=== PATIENT | female | born 1965 | race Caucasian/White ===

== ENCOUNTER 2020-09-25 13:18 | Emergency (ER) | payer OTHER ==
[~2020-09-25] VITALS: Ht 157.5 cm; Wt 60.0 kg
[2020-09-25 13:22] VITALS: BP 148/82
--- NOTE | 2020-09-25 13:39 | PHYS DOC ---
Past History Past Medical History: Arthritis, Diabetes Additional Past Medical Histor: gout Additional Past Surgical Histo: Josefina n y, humeral head replacement, ORIF R leg Alcohol Use: None General Adult EDM: Chief Complaint: CHEST PAIN HPI: HPI: Patient is a 55-year-old female who presents with chest pain, back pain, nausea. Patient describes the pain as a bandlike, squeezing. Patient's had gastric bypass in April and reports having issues with acid reflux. Chest pain started 2 days ago. Patient's been taking Tylenol at home for the pain with no relief. Review of Systems: Review of Systems: Constitutional: Denies fever or chills Eyes: Denies change in visual acuity HENT: Denies nasal congestion or sore throat Respiratory: Denies cough or reports shortness of breath Cardiovascular: Reports chest pain denies edema GI: Denies abdominal pain, nausea, vomiting, bloody stools or diarrhea : Denies dysuria Musculoskeletal: Denies back pain or joint pain Integument: Denies rash Neurologic: Denies headache, focal weakness or sensory changes Endocrine: Denies polyuria or polydipsia Lymphatic: Denies swollen glands Psychiatric: Denies depression or anxiety Current Medications: Current Meds: Current Medications Medications (Trade) Dose Ordered Sig/Debbie Start Time Stop Time Status Last Admin Dose Admin Aspirin (Aspirin Chewable) 324 mg 1X ONCE 09/25/20 13:45 09/25/20 13:46 Allergies: Allergies: Allergies Coded Allergies Type Severity Reaction Last Updated Verified No Known Drug Allergies 09/25/20 No Physical Exam: PE: Constitutional: Well developed, well nourished, no acute distress, non-toxic appearance. [] HENT: Normocephalic, atraumatic, bilateral external ears normal, oropharynx moist, no oral exudates, nose normal. [] Eyes: PERRLA, EOMI, conjunctiva normal, no discharge. [] Neck: Normal range of motion, no tenderness, supple, no stridor. [] Cardiovascular:Heart rate regular rhythm, no murmur [] Lungs & Thorax: Bilateral breath sounds clear to auscultation [] Abdomen: Bowel sounds normal, soft, no tenderness, no masses, no pulsatile masses. [] Skin: Warm, dry, no erythema, no rash. [] Back: Upper back tenderness, no CVA tenderness. [] Extremities: No tenderness, no cyanosis, no clubbing, ROM intact, no edema. [] Neurologic: Alert and oriented X 3, normal motor function, normal sensory function, no focal deficits noted. [] Psychologic: Affect normal, judgement normal, mood normal. [] Current Patient Data: Vital Signs: Vital Signs Date Time Temp Pulse Resp B/P (MAP) Pulse Ox O2 Delivery O2 Flow Rate FiO2 09/25/20 13:22 97.5 67 17 148/82 (104) 98 EKG: EKG: Sinus rhythm, normal EKG. Heart rate 66 bpm. Intervals normal. [place] normal. Read by Dr. Hopkins at 1333. Repeat EKG: Sinus rhythm, normal EKG. Heart rate 68 bpm. Intervals normal. [place] normal. Read by Dr. Hopkins at 1559. [] Radiology/Procedures: Radiology/Procedures: []AP chest. HISTORY: Chest pain AP view was taken of the chest. Lungs are clear. Heart is normal in size. There is no pleural effusion. IMPRESSION: 1. No acute chest disease. Electronically signed by: Emmanuel Frances MD (09/25/2020 1:50 PM) [facility] CT arteriogram of the chest. HISTORY: Short of breath CT arteriogram of the chest was done using 75 mL Omnipaque 350 contrast. Coronal MIP images were reconstructed. Thyroid is homogeneous. There is no mediastinal adenopathy. The upper aspect of the liver and spleen is unremarkable. There is no effusion. Lungs are free of infiltrates. Study is negative for evidence of a pulmonary embolus. IMPRESSION: 1. No infiltrates noted. 2. Negative for pulmonary embolus. Heart Score: HEART Score for Chest Pain: HEART Score for Chest Pain Response (Comments) Value History Slighlty/Non-Suspicious 0 ECG Normal 0 Age >45 - < 65 1 Risk Factors No Risk Factors 0 Troponin < Normal Limit 0 Total 1 Risk Factors: Risk Factors: DM, Current or recent (<one month) smoker, HTN, HLP, family history of CAD, obesity. Risk Scores: Score 0 - 3: 2.5% MACE over next 6 weeks - Discharge Home Score 4 - 6: 20.3% MACE over next 6 weeks - Admit for Clinical Observation Score 7 - 10: 72.7% MACE over next 6 weeks - Early Invasive Strategies Course & Med Decision Making: Course & Med Decision Making Pertinent Labs and Imaging studies reviewed. (See chart for details) [Patient is a 55-year-old female who presents with chest pain, back pain, nausea. Patient describes the pain as a bandlike, squeezing. Patient's had gastric bypass in April and reports having issues with acid reflux. Chest pain started 2 days ago. Patient's been taking Tylenol at home for the pain with no relief. ]Sinus rhythm, normal EKG. Heart rate 66 bpm. Intervals normal. [place] normal. Chest xray shows No acute chest disease. Troponin is negative. Heart score of 1. D-dimer is elevated(0.88), CTA of chest ordered. Patient complaining of increase in chest pain again. Repeat EKG ordered. 4mg morphine, GI cocktail. Will reassess patient. CTA shows no infiltrates, no PE. Repeat EKG shows no changes. Patient is reporting a decrease in pain 6/10 after GI cocktail and morphine. Discharging patient to home with follow-up instructions for her PCP to get a referral for GI. Sending patient home with zofran and 5/325hydrocodone Kendrick Disclaimer: Kendrick Disclaimer: This electronic medical record was generated, in whole or in part, using a voice recognition dictation system. Departure Departure: Impression: Primary Impression: Chest pain Qualified Codes: R07.9 - Chest pain, unspecified Disposition: 01 DC HOME SELF CARE/HOMELESS Condition: GOOD Referrals: PCP,UNKNOWN (PCP) Patient Instructions: Chest Pain (Nonspecific), [id number] Additional Instructions: He was in the emergency room today for chest pain, nausea. You were given medication to treat the chest pain and nausea. Your pain did improve while in the emergency room. Your lab work, chest x-ray all came back normal. Please contact your PCP tomorrow for a follow-up and a referral for GI. If you have worsening symptoms or concerns please return to the emergency room. EMERGENCY DEPARTMENT GENERAL DISCHARGE INSTRUCTIONS Thank you for coming to [place] [facility] (ED) today and trusting us with you care. We trust that you had a positivie experience in our Emergency Department. If you wish to speak to the department management, you may call the director at [phone]. YOUR FOLLOW UP INSTRUCTIONS ARE FOLLOWS: 1. Do you have a private Doctor? If you do not have a private doctor, please ask for a resource list of physicians or clinics that may be able to assist you with follow up care. 2. The Emergency Physician has interpreted your x-rays. The X-Ray specialist will also review them. If there is a change in the findings, you will be notified in 48 hours when at all possible. 3. A lab test or culture has been done, your results will be reviewed and you will be notified if you need a change in treatment. ADDITIONAL INSTRUCTIONS AND INFORMATION: 1. Your care today has been supervised by a physician who is specially trained in emergency care. Many problems require more than one evaluation for a complete diagnosis and treatment. We recommend that you schedule your follow up appointment as recommended to ensure complete treatment of you illness or injury. If you are unable to obtain follow up care and continue to have a problem, or if your condition worsens, we recommend that you return to the ED. 2. We are not able to safely determine your condition over the phone nor are we able to give sound medical advice over the phone. For these safety reasons, if you call for medical advice we will ask you to come to the ED for further evaluation. 3. If you have any questions regarding these discharge instructions please call the ED at [phone]. SAFETY INFORMATION: In the interest of safety, wellness, and injury prevention; we encourage you to wear your sealbelt, if you smoke; quite smoking, and we encourage family to use a protective helmet for bicycling and other sporting events that present an increased risk for head injury. IF YOUR SYMPTOMS WORSEN OR NEW SYMPTOMS DEVELOP, OR YOU HAVE CONCERNS ABOUT YOUR CONDITION; OR IF YOUR CONDITION WORSENS WHILE YOU ARE WAITING FOR YOUR FOLLOW UP APPOINTMENT; EITHER CONTACT YOUR PRIMARY CARE DOCTOR, THE PHYSICIAN WHOSE NAME AND NUMBER YOU WERE GIVEN, OR RETURN TO THE ED IMMEDIATELY. Scripts Hydrocodone Bit/Acetaminophen (HYDROCODONE-APAP 5-325 ) 1 Each Tablet 1 TAB PO PRN Q6HRS PRN for PAIN for 3 Days, #8 TAB 0 Refills Prov: VALERIO ACUÑA APRN 09/25/20 Ondansetron Hcl (ZOFRAN) 4 Mg Tablet 4 MG PO TID PRN PRN for NAUSEA, #9 TAB Prov: VALERIO ACUÑA APRN 09/25/20 VALERIO ACUÑA APRN Sep 25, 2020 13:39
--- NOTE | 2020-09-25 13:40 | EKG ---
[address] [address] Test Date: 2020-09-25 Test Time: 13:25:48 Pat Name: CLAUDIA PALACIO Department: Room: Gender: F Billet Sawyer: JOHN : 1965 Requested By: VALERIO ACUÑA Order Number: [id number] Reading MD: Amadou Flynn Measurements Intervals [place] Heart Rate: 66 P: 0 LA: 204 QRS: 8 QRSD: 76 T: 22 QT: 414 QTc: 436 Interpretive Statements SINUS RHYTHM NORMAL ECG RI6.02 No previous ECG available for comparison Electronically Signed On 09-26-2020 10:03:10 TEXTILE SLITTING MACHINE OPERATOR by Amadou Flynn
[2020-09-25] MEDS ORDERED: ASPIRIN CHEWABLE 81 MG TABLET. PO ONE (13:45)
--- NOTE | 2020-09-25 13:53 | RAD ---
AP chest. HISTORY: Chest pain AP view was taken of the chest. Lungs are clear. Heart is normal in size. There is no pleural effusio n. IMPRESSION: 1. No acute chest disease. Electronically signed by: Emmanuel Frances MD (09/25/2020 1:50 PM) [facility]
[2020-09-25] MEDS ORDERED: ONDANSETRON PF 4 MG/2 ML VIAL. IVP ONE (14:00)
[2020-09-25] MEDS ORDERED: MORPHINE SULFATE 4 MG/ML DISP.SYRIN. IV ONE ×2 (14:00→16:00)
[2020-09-25 14:04] LABS: BASO # 0.1 x10^3/uL (0.0-0.2); BASO % 1 % (0-3); EOS % 0 % (0-3); HEMATOCRIT 42.2 % (36.0-47.0); HEMOGLOBIN 13.6 g/dL (12.0-15.5); LYMPH # 2.1 x10^3/uL (1.0-4.8); LYMPH % 23 % (24-48); MEAN CORPUSCULAR HEMOGLOBIN 30 pg (25-35); MEAN CORPUSCULAR HGB CONC 32 g/dL (31-37); MEAN CORPUSCULAR VOLUME 92 fL (79-100); MONO # 0.6 x10^3/uL (0.0-1.1); MONO % 7 % (0-9); NEUT # 6.5 x10^3uL (1.8-7.7); NEUT % 70 % (31-73); PLATELET COUNT 345 x10^3/uL (140-400); RED BLOOD COUNT 4.57 x10^6/uL (3.50-5.40); RED CELL DISTRIBUTION WIDTH 13.7 % (11.5-14.5); WHITE BLOOD COUNT 9.3 x10^3/uL (4.0-11.0)
[2020-09-25 14:19] LABS: CREATININE 1.3 mg/dL (0.6-1.0); GFR 42.7; POTASSIUM 4.3 mmol/L (3.5-5.1)
[2020-09-25 14:30] LABS: ALBUMIN 3.2 g/dL (3.4-5.0); ALBUMIN/GLOBULIN RATIO 0.7 (1.0-1.7); MAGNESIUM 2.2 mg/dL (1.8-2.4); TOTAL BILIRUBIN 0.3 mg/dL (0.2-1.0)
[2020-09-25] MEDS ORDERED: IOHEXOL 350 MG/ML 100 ML VIAL. IV ONE (15:00)
--- NOTE | 2020-09-25 15:48 | RAD ---
CT arteriogram of the chest. HISTORY: Short of breath CT arteriogram of the chest was done using 75 mL Omnipaque 350 contrast. Coronal MIP images were mak nstructed. Thyroid is homogeneous. There is no mediastinal adenopathy. The upper aspect of the liver and spleen is unremarkable. There is no effusion. Lungs are free of infiltrates. Study is negative fo r evidence of a pulmonary embolus. IMPRESSION: 1. No infiltrates noted. 2. Negative for pulmonary embolus. PQRS Compliance Statement: One or more of the following individualized dose reduction techniques were utilized for this examinat ion: 1. Automated exposure control 2. Adjustment of the mA and/or kV according to patient size 3. Use of iterative reconstruction technique Electronically signed by: Emmanuel Frances MD (09/25/2020 3:46 PM) [facility]
[2020-09-25] MEDS ORDERED: LIDO:MAALOX 1:1 20 ML SINGLE DOSE. PO ONE (16:00)
[2020-09-25] MEDS ORDERED: ONDA4TAB7 PO (17:05)
[2020-09-25] MEDS ORDERED: HYDR-2155 PO (17:05)
--- NOTE | 2020-09-25 17:40 | EKG ---
[address] [address] Test Date: 2020-09-25 Test Time: 15:54:59 Pat Name: CLAUDIA PALACIO Department: Room: Gender: F Improvement Engineer: JOHN : 1965 Requested By: VALERIO ACUÑA Order Number: [id number] Reading MD: Amadou Flynn Measurements Intervals [place] Rate: 68 P: 27 [place]: 200 QRS: 13 QRSD: 76 T: 22 QT: 418 QTc: 445 Interpretive Statements SINUS RHYTHM NORMAL ECG Electronically Signed On 09-26-2020 10:03:20 DOWEL SETTING MACHINE OPERATOR by Amadou Flynn
== END 2020-09-25 17:25 | disposition home or self-care (01) ==
LOC: ER 13:18
DX: R07.89 Other chest pain (principal); M54.6 Pain in thoracic spine; M19.90 Unspecified osteoarthritis, unspecified site; E11.9 Type 2 diabetes mellitus without complications; Z98.84 Bariatric surgery status
CPT/HCPCS: 36415; 71045; 71275; 80053; 83735; 83880; 84484; 85025; 85379; 93005; 96374; 96375; 96376; 99285; J2270; J2405; Q9967

== ENCOUNTER 2021-04-03 11:00 | Emergency (ER) | payer OTHER ==
[~2021-04-03] VITALS: Ht 157.5 cm; Wt 60.0 kg
[~2021-04-03 11:00] MED LIST: HYDR-2155 PO; ONDA4TAB7 PO
[2021-04-03 11:13] VITALS: BP 148/82
--- NOTE | 2021-04-03 12:18 | EKG ---
[address] [address] Test Date: 2021-04-03 Test Time: 12:06:40 Pat Name: CLAUDIA PALACIO Department: Room: Gender: F Master Data Analyst: JENNA : 1965 Requested By: ISABELA SAUCEDO Order Number: [id number] Reading MD: Measurements Intervals [place] Rate: 65 P: 54 [place]: 210 QRS: 31 QRSD: 74 T: 43 QT: 400 QTc: 417 Interpretive Statements SINUS RHYTHM NORMAL ECG RI6.02 No previous ECG available for comparison
--- NOTE | 2021-04-03 12:21 | PHYS DOC ---
Past History Past Medical History: Arthritis, Diabetes Additional Past Medical Histor: gout Past Surgical History: Cholecystectomy Additional Past Surgical Histo: Josefina n y, humeral head replacement, ORIF R leg Alcohol Use: None Adult General Chief Complaint Chief Complaint: CHEST PAIN [facility] HPI Patient is a 55-year-old female presenting for chest pain. Reports onset was approximately 1 hour ago while at rest. Endorses substernal chest pain that was tight and nonradiating, lasted several minutes before self resolving without any provided intervention. Reports initial severity was 10/10 and caused her to double over, this was transient in nature. She has never experienced anything like this in the past. Nothing known made better or worse during episode. She has never suffered any episode like this in the past. Does not smoke, has family history of cardiovascular disease all found at older ages, no personal history of cardiovascular disease or provocative cardiac testing in outpatient setting besides an unremarkable stress test 13 years ago. No recent changes in home medication, no significant comorbid conditions, no fever, recent travel or sick contacts, ripping or tearing sensation in chest, shortness of breath or cough, abdominal pain Review of Systems Review of Systems Fourteen body systems of review of systems have been reviewed. See HPI for pertinent positives and negative responses, other garay all other systems are negative, non-pertinent or non-contributory Allergies Allergies Allergies Coded Allergies Type Severity Reaction Last Updated Verified No Known Drug Allergies 09/25/20 No Physical Exam Physical Exam Constitutional: Well developed, well nourished, no acute distress, non-toxic appearance. [] HENT: Normocephalic, atraumatic, bilateral external ears normal, oropharynx moist, no oral exudates, nose normal. [] Eyes: PERRLA, EOMI, conjunctiva normal, no discharge. [] Neck: Normal range of motion, no tenderness, supple, no stridor. [] Cardiovascular:Heart rate regular rhythm, no murmur [] Lungs & Thorax: Bilateral breath sounds clear to auscultation [] Abdomen: Bowel sounds normal, soft, no tenderness, no masses, no pulsatile masses. [] Skin: Warm, dry, no erythema, no rash. [] Back: No tenderness, no CVA tenderness. [] Extremities: No tenderness, no cyanosis, no clubbing, ROM intact, no edema. [] Neurologic: Alert and oriented X 3, normal motor function, normal sensory function, no focal deficits noted. [] Psychologic: Affect normal, judgement normal, mood normal. [] Current Patient Data Vital Signs Vital Signs Date Time Temp Pulse Resp B/P (MAP) Pulse Ox O2 Delivery O2 Flow Rate FiO2 04/03/21 11:13 97.8 71 16 148/82 99 Room Air Lab Results Laboratory Tests Test 04/03/21 12:35 White Blood Count 4.3 x10^3/uL Red Blood Count 4.13 x10^6/uL Hemoglobin 12.8 g/dL Hematocrit 38.8 % Mean Corpuscular Volume 94 fL Mean Corpuscular Hemoglobin 31 pg Mean Corpuscular Hemoglobin Concent 33 g/dL Red Cell Distribution Width 14.1 % Platelet Count 156 x10^3/uL Neutrophils (%) (Auto) 48 % Lymphocytes (%) (Auto) 42 % Monocytes (%) (Auto) 7 % Eosinophils (%) (Auto) 3 % Basophils (%) (Auto) 1 % Neutrophils # (Auto) 2.1 x10^3uL Lymphocytes # (Auto) 1.8 x10^3/uL Monocytes # (Auto) 0.3 x10^3/uL Eosinophils # (Auto) 0.1 x10^3/uL Basophils # (Auto) 0.0 x10^3/uL Sodium Level 143 mmol/L Potassium Level 4.1 mmol/L Chloride Level 107 mmol/L Carbon Dioxide Level 29 mmol/L Anion Gap 7 Blood Urea Nitrogen 29 mg/dL Creatinine 1.0 mg/dL Estimated GFR (Cockcroft-Gault) 57.8 BUN/Creatinine Ratio 29 Glucose Level 83 mg/dL Calcium Level 8.9 mg/dL Total Bilirubin 0.3 mg/dL Aspartate Amino Transf (AST/SGOT) 292 U/L Alanine Aminotransferase (ALT/SGPT) 231 U/L Alkaline Phosphatase 120 U/L Troponin I Quantitative < 0.017 ng/mL Total Protein 6.5 g/dL Albumin 3.8 g/dL Albumin/Globulin Ratio 1.4 Lipase 139 U/L EKG EKG EKG ordered and interpreted by myself at 1207 hrs. as sinus rhythm at 65 bpm, prolonged RI at 210 otherwise unremarkable intervals, no axis deviation, no obvious ischemic findings, no STEMI Radiology/Procedures Radiology/Procedures INDICATION: Reason: chest pain / Spl. Instructions: / History: COMPARISON: September 25, 2020 FINDINGS: Single view of chest obtained. No focal airspace consolidation. Cardiomediastinal contour unremarkable. No acute osseous abnormality. IMPRESSION: * No focal airspace consolidation or edema. Electronically signed by: Nii Ye MD (04/03/2021 12:45 PM) DESKTOP- [id number] Heart Score C/O Chest Pain: No HEART Score for Chest Pain: HEART Score for Chest Pain Response (Comments) Value History Slighlty/Non-Suspicious 0 ECG Normal 0 Age >45 - < 65 1 Risk Factors 1 or 2 Risk Factors 1 Troponin < Normal Limit 0 Total 2 Risk Factors: Risk Factors: DM, Current or recent (<one month) smoker, HTN, HLP, family history of CAD, obesity. Risk Scores: Risk Factors: DM, Current or recent (<one month) smoker, HTN, HLP, family history of CAD, obesity. Course & Med Decision Making Course & Med Decision Making Vitals stable. HPI, physical examination and comprehensive ER work-up nonconcerning for any emergent or surgical issues. I disclosed low risk heart score but did disclose this might be an acute presentation of more concerning pathology I discussed patient's symptoms and unknown etiology of reported episode. I did recommend cardiac observation but patient deferred. She cites good access to primary care provider and wishes to have close outpatient follow-up versus ad mission As such, strict return precautions were discussed and understood by both patient and significant other at bedside. All questions and concerns addressed prior to ER departure Kendrick Disclaimer Kendrick Disclaimer This electronic medical record was generated, in whole or in part, using a voice recognition dictation system. Departure Departure: Impression: Primary Impression: Chest pain, unspecified Disposition: HOME / SELF CARE / HOMELESS Condition: STABLE Referrals: THEA DUMONT (PCP) HILDA ARGUELLES MD Patient Instructions: Chest Pain (Nonspecific) Additional Instructions: You were seen for chest pain. Your workup did not show any acute abnormalities today, but does not indicate that you do not have underlying cardiovascular disease. You do need to follow up with your primary doctor and/or usability architect for further evaluation and treatment. You should return to the ED if you develop worsening chest pain, shortness of breath, fever, abnormal sweating, leg swelling, or any other new or concerning symptoms. ISABELA SAUCEDO DO Apr 03, 2021 12:21
--- NOTE | 2021-04-03 12:48 | RAD ---
INDICATION: Reason: chest pain / Spl. Instructions: / History: COMPARISON: September 25, 2020 FINDINGS: Single view of chest obtained. No focal airspace consolidation. Cardiomediastinal contour unremarkable. No acute osseous abnormality. IMPRESSION: * No focal airspace consolidation or edema. Electronically signed by: Nii Ye MD (04/03/2021 12:45 PM) [id number]
[2021-04-03 12:53] LABS: BASO % 1 % (0-3); EOS # 0.1 x10^3/uL (0.0-0.7); EOS % 3 % (0-3); HEMATOCRIT 38.8 % (36.0-47.0); HEMOGLOBIN 12.8 g/dL (12.0-15.5); LYMPH # 1.8 x10^3/uL (1.0-4.8); LYMPH % 42 % (24-48); MEAN CORPUSCULAR HEMOGLOBIN 31 pg (25-35); MEAN CORPUSCULAR HGB CONC 33 g/dL (31-37); MEAN CORPUSCULAR VOLUME 94 fL (79-100); MONO # 0.3 x10^3/uL (0.0-1.1); MONO % 7 % (0-9); NEUT # 2.1 x10^3uL (1.8-7.7); NEUT % 48 % (31-73); PLATELET COUNT 156 x10^3/uL (140-400); RED BLOOD COUNT 4.13 x10^6/uL (3.50-5.40); RED CELL DISTRIBUTION WIDTH 14.1 % (11.5-14.5); WHITE BLOOD COUNT 4.3 x10^3/uL (4.0-11.0)
[2021-04-03 13:02] LABS: CALCIUM 8.9 mg/dL (8.5-10.1); GFR 57.8; POTASSIUM 4.1 mmol/L (3.5-5.1)
[2021-04-03 13:08] LABS: ALBUMIN 3.8 g/dL (3.4-5.0); ALBUMIN/GLOBULIN RATIO 1.4 (1.0-1.7); TOTAL BILIRUBIN 0.3 mg/dL (0.2-1.0); TOTAL PROTEIN 6.5 g/dL (6.4-8.2)
== END 2021-04-03 13:48 | disposition home or self-care (01) ==
LOC: ER 11:00
DX: R07.89 Other chest pain (principal); E11.9 Type 2 diabetes mellitus without complications; Z90.49 Acquired absence of other specified parts of digestive tract
CPT/HCPCS: 36415; 71045; 80053; 83690; 84484; 85025; 93005; 99285-25

== ENCOUNTER 2021-06-27 03:23 | Inpatient (IN) | payer OTHER ==
[~2021-06-27] VITALS: Ht 157.5 cm; Wt 51.0 kg
--- NOTE | 2021-06-27 03:31 | PHYS DOC ---
Past History Past Medical History: Arthritis, Diabetes Additional Past Medical Histor: gout Past Surgical History: Cholecystectomy Additional Past Surgical Histo: Josefina n y, humeral head replacement, ORIF R leg Alcohol Use: None Adult General HPI HPI Patient is a 56-year-old female with a past medical history of urinary tract infections and kidney stones who presents to the emergency department with a chief complaint of urinary frequency, urgency, flank pain 6 out of 10, sharp in nature and nausea that started last night. Denies recent traumas, travels, illnesses, fevers, chest pain, shortness of breath, other abdominal pain or vomiting, hematuria, diarrhea or blood in the stool. Review of Systems Review of Systems Review of systems otherwise unremarkable except noted in HPI Allergies Allergies Allergies Coded Allergies Type Severity Reaction Last Updated Verified No Known Drug Allergies 09/25/20 No Physical Exam Physical Exam Constitutional: Well developed, well nourished, no acute distress, non-toxic appearance. [] HENT: Normocephalic, atraumatic, bilateral external ears normal, oropharynx moist, no oral exudates, nose normal. [] Eyes: conjunctiva normal, no discharge. [] Neck: Normal range of motion, no tenderness, supple, no stridor. [] Cardiovascular:Heart rate regular rhythm, no murmur [] Lungs & Thorax: Bilateral breath sounds clear to auscultation [] Abdomen: soft, no tenderness, no masses, no pulsatile masses. [] Skin: Warm, dry, no erythema, no rash. [] Back: No tenderness, no CVA tenderness. [] Extremities: No tenderness, no cyanosis, no clubbing, ROM intact, no edema. [] Neurologic: Alert and oriented X 3, normal motor function, normal sensory function, no focal deficits noted. [] Psychologic: Affect normal, judgement normal, mood normal. [] EKG EKG [] Radiology/Procedures Radiology/Procedures [] CT ABDOMEN+PELVIS WO Clinical Indication: Reason: flank pain, left side / Spl. Instructions: / History: Comparison: None. Technique: Helical CT imaging of the abdomen and pelvis is performed without IV or oral contrast. Findings: Lung bases are clear. Cardiac size normal. Cholecystectomy. The liver, spleen, pancreas, and adrenal glands are normal. The abdominal aorta is normal caliber. There are several punctate nonobstructing right renal calculi. There is no right hydronephrosis. There is severe left perinephric stranding. There is moderate left hydronephrosis. There is air in the upper collecting system. There are a few nonobstructing left renal calculi, largest measures 5 mm. There is left upper pole cyst that does not require follow-up. There is hyperdensity at the left ureteropelvic junction that may be due to tiny calculi, image 43. There is left hydroureter. There is a probable tiny left ureteral calculus, image 111. There are postsurgical changes of gastric bypass. No small bowel obstruction is identified. There is moderate colon stool volume. No colon wall thickening is identified. No secondary signs of appendicitis. The urinary bladder is nearly completely decompressed, limiting evaluation. Small amount of air is seen in the lumen. Uterus unremarkable. No pelvic free fluid. No acute bone abnormality. IMPRESSION: 1. There is moderate left hydroureteronephrosis and severe left perinephric stranding. There is air in the upper collecting system, cannot exclude superimposed pyelitis. Correlate to any recent instrumentation. There is hyperdense material at the ureteropelvic junction that may be due to tiny stones. Acute hemorrhage is a less likely consideration. There is a tiny distal left ureteral calculus. 2. Bilateral nonobstructing renal calculi. Electronically signed by: Chris Giron MD (06/27/2021 4:28 AM) [facility] Heart Score C/O Chest Pain: No Risk Factors: Risk Factors: DM, Current or recent (<one month) smoker, HTN, HLP, family history of CAD, obesity. Risk Scores: Risk Factors: DM, Current or recent (<one month) smoker, HTN, HLP, family history of CAD, obesity. Course & Med Decision Making Course & Med Decision Making Patient is a 56-year-old female who presents with urinary symptoms with flank pain Vital signs not concerning. Physical exam noted above. Patient placed on monitor with IV access established and IV fluid given. Given nausea medicine. Laboratory analysis notable for mildly elevated creatinine and urinalysis suggestive infection and CT suggestive of pyelitis/pyelonephritis. Patient continued on IV fluid resuscitation. Given pain meds. Given antibiotics. Discussed all findings with patient and recommended admission to [place]. Patient grateful, verbalized understanding and agreed with plan of admission for continued evaluation and treatment. [] Dragon Disclaimer Dragon Disclaimer This electronic medical record was generated, in whole or in part, using a voice recognition dictation system. Departure Departure: Impression: Primary Impression: Pyelitis Additional Impression: Pyelonephritis Disposition: ADMITTED INPATIENT Admitting Physician: Demetri Acosta Condition: STABLE Referrals: THEA DUMONT (PCP) Problem Qualifiers TIARRA DE LA PAZ MD Jun 27, 2021 03:31
[2021-06-27 03:55] LABS: BASO % 0 % (0-3); EOS % 1 % (0-3); HEMOGLOBIN 13.6 g/dL (12.0-15.5); LYMPH # 0.7 x10^3/uL (1.0-4.8); LYMPH % 9 % (24-48); MEAN CORPUSCULAR HEMOGLOBIN 32 pg (25-35); MEAN CORPUSCULAR HGB CONC 33 g/dL (31-37); MEAN CORPUSCULAR VOLUME 95 fL (79-100); MONO # 0.2 x10^3/uL (0.0-1.1); MONO % 3 % (0-9); NEUT # 6.8 x10^3uL (1.8-7.7); NEUT % 87 % (31-73); PLATELET COUNT 142 x10^3/uL (140-400); RED BLOOD COUNT 4.31 x10^6/uL (3.50-5.40); RED CELL DISTRIBUTION WIDTH 14.6 % (11.5-14.5); WHITE BLOOD COUNT 7.7 x10^3/uL (4.0-11.0)
[2021-06-27] MEDS ORDERED: ONDANSETRON ODT 4 MG TAB.RAPDIS PO ONE (04:00)
[2021-06-27 04:11] LABS: CALCIUM 9.3 mg/dL (8.5-10.1); CREATININE 1.1 mg/dL (0.6-1.0); GFR 51.6; POTASSIUM 3.7 mmol/L (3.5-5.1)
[2021-06-27 04:27] LABS: CLARITY,URINE CLEAR; COLOR,URINE YELLOW
[2021-06-27 04:28] LABS: BACTERIA,URINE MOD /HPF (0-FEW); BILIRUBIN,URINE NEG (NEG); GLUCOSE,URINE NEG (NEG); NITRITE,URINE NEG (NEG); SQUAMOUS EPITHELIAL CELL,UR MOD /LPF; UROBILINOGEN,URINE 0.2 mg/dL (0.2 mg/dL); WBC,URINE TNTC /HPF (0-4)
--- NOTE | 2021-06-27 04:30 | RAD ---
PQRS Compliance Statement: One or more of the following individualized dose reduction techniques were utilized for this examinat ion: 1. Automated exposure control 2. Adjustment of the mA and/or kV according to patient size 3. Use of iterative reconstruction technique CT ABDOMEN+PELVIS WO Clinical Indication: Reason: flank pain, left side / Spl. Instructions: / History: Comparison: None. Technique: Helical CT imaging of the abdomen and pelvis is performed without IV or oral contrast. Findings: Lung bases are clear. Cardiac size normal. Cholecystectomy. The liver, spleen, pancreas, and adrenal glands are normal. The abdominal aorta is n ormal caliber. There are several punctate nonobstructing right renal calculi. There is no right hydronephrosis. There is severe left perinephric stranding. There is moderate left hydronephrosis. There is air in th e upper collecting system. There are a few nonobstructing left renal calculi, largest measures 5 mm. There is left upper pole cyst that does not require follow-up. There is hyperdensity at the left uret eropelvic junction that may be due to tiny calculi, image 43. There is left hydroureter. There is a p robable tiny left ureteral calculus, image 111. There are postsurgical changes of gastric bypass. No small bowel obstruction is identified. There is moderate colon stool volume. No colon wall thickening is identified. No secondary signs of appendicit is. The urinary bladder is nearly completely decompressed, limiting evaluation. Small amount of air is se en in the lumen. Uterus unremarkable. No pelvic free fluid. No acute bone abnormality. IMPRESSION: 1. There is moderate left hydroureteronephrosis and severe left perinephric stranding. There is air in the upper collecting system, cannot exclude superimposed pyelitis. Correlate to any recent instrum entation. There is hyperdense material at the ureteropelvic junction that may be due to tiny stones. Acute hemorrhage is a less likely consideration. There is a tiny distal left ureteral calculus. 2. Bilateral nonobstructing renal calculi. Electronically signed by: Chris Giron MD (06/27/2021 4:28 AM) [facility]
[2021-06-27] MEDS ORDERED: IV NORMAL SALINE 50ML 50 ML ONE (05:17)
[2021-06-27] MEDS ORDERED: cefTRIAXone SODIUM 1 GM VIAL ONE (05:17)
[2021-06-27] MEDS ORDERED: IV RINGERS SOLUTION,LACTATED 1,000 ML IV ONE (05:30)
[2021-06-27] MEDS ORDERED: MORPHINE SULFATE 4 MG/ML DISP.SYRIN. IV ONE (05:30)
[2021-06-27 07:51] VITALS: BP 125/77
--- NOTE | 2021-06-27 07:54 | NUR ---
PATIENT IS A 56 Y O FEMALE ARRIVED VIA EMS. PATIENT IS A/O X 4, AWAKE IN A BED UPON ASSESSMENT, CALM AND COOPERATIVE, DENIED ANY NAUSEA, STATED SHE HAD SOME MEDICATIONS GIVEN IN ER FOR PAIN AND NAUSEA. PATIENT WAS ORIENTED TO THE ROOM AND HOSPITAL POLICIES. PATIENT IS CURRENTLY IN A BED EATING BREAKFAST.
[2021-06-27] MEDS ORDERED: PROP120C48 PO (08:04)
[2021-06-27] MEDS ORDERED: ALLO300T PO (08:04)
[2021-06-27] MEDS ORDERED: FAMO-63 PO (08:04)
[2021-06-27] MEDS ORDERED: PANT40TA3 PO (08:04)
[2021-06-27] MEDS ORDERED: TOPI100T42 PO (08:04)
[2021-06-27] MEDS: IV RINGERS SOLUTION,LACTATED 1,000 ML IV SCH ×2 (09:01→18:18)
[2021-06-27] MEDS: MORPHINE SULFATE 4 MG/ML DISP.SYRIN. IV PRN ×3 (10:32→21:29)
[2021-06-27 10:51] VITALS: BP 103/66
[2021-06-27] MEDS: ALLOPURINOL 300 MG TABLET. PO SCH (11:27)
[2021-06-27] MEDS: TOPIRAMATE 100 MG TABLET. PO SCH ×2 (11:28→20:58)
[2021-06-27 15:24] VITALS: BP 102/67
--- NOTE | 2021-06-27 15:54 | HP ---
DATE OF SERVICE: 06/27/2021 ADMIT DATE: 06/27/2021 HISTORY OF PRESENT ILLNESS: The patient is a 56-year-old female patient who presented to the Emergency Room with a complaint of dysuria, frequency, back pain, right flank pain, fever, chills. Does have also dysuria and initially, the patient thought she has stones. She was extensively investigated in the Emergency Room, has had lab work and imaging studies. Her lab work showed that white cell count is only 7700. She has mild lactic acidosis, slightly impaired kidney function. Urinalysis showed the patient has moderate amount of leukocytosis, 3-5 rbc's, too numerous to count wbc's, and moderate amount of bacteria. The CT scan of the abdomen and pelvis showed the patient has moderate left hydroureteronephrosis and severe left perinephric stranding. There is air in the upper collecting system, cannot exclude superimposed pyelitis correlate to any recent instrumentation. There is hyperdense material at the ureteropelvic junction that may be due to tiny stones. Acute hemorrhage is a less likely consideration. There is a tiny distal left ureteral calculus. She has bilateral nonobstructing renal calculi. The patient was admitted, diagnosed with acute pyelonephritis and left-sided hydroureteronephrosis. Her urine and blood were sent for culture and sensitivity, and was started on IV ceftriaxone together with IV fluid and pain medication. PAST MEDICAL HISTORY: Significant for nephrolithiasis, multiple episodes of cystoscopy and retrograde pyelography, and stent deployment. She has also gout; migraine headache; morbid obesity, for which, she underwent gastric bypass surgery; gastroesophageal reflux disease; irritable bowel syndrome; hyperlipidemia; and prediabetes. PAST SURGICAL HISTORY: Significant for cholecystectomy, gastric bypass surgery, cystoscopy, and retrograde pyelography as well as ureteral stent deployment. She has ablation of the uterus for dysfunctional uterine bleeding. ALLERGIES: She has no known drug allergies. MEDICATIONS: She is currently on following medication: She is on propranolol for Inderal XL 120 mg once a day, topiramate 100 mg twice a day, famotidine she takes 10 mg at bedtime, Protonix 40 mg once a day, and allopurinol 300 mg daily. FAMILY HISTORY: She has one brother, younger who has rheumatoid arthritis. One older sister with breast cancer and rheumatoid arthritis. Her father at age of 54 because of myocardial infarction. Mother is still alive and has hyperlipidemia and pancreatitis. SOCIAL HISTORY: She is , has 4 boys and 1 daughter. She never smoked. Drinks alcohol occasionally. 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 REVIEW OF SYSTEMS: As per history of present illness. PHYSICAL EXAMINATION: GENERAL: On arrival to the Emergency Room, the patient looked well and was clearly in no apparent respiratory distress. No pallor, jaundiced, cyanosed. No thyromegaly. No jugular venous distention. No limb edema. VITAL SIGNS: Her heart rate was 77, blood pressure was 123/78, temperature was 98.2, respiratory rate was 16, and oxygen saturation was 100% on room air. HEAD, EYES, EARS, NOSE, AND THROAT: Normocephalic, atraumatic. NECK: Supple. HEART: Normal first and second heart sounds. No gallop, rub, or murmur. CHEST: Shows central trachea. Equal bilateral chest expansion, air entry, vesicular breath sounds. No crepitation or rhonchi. ABDOMEN: Slightly distended, soft, nontender. She did have tenderness in the left costophrenic angle, but there is no guarding or rigidity. No organomegaly. All hernial orifices intact. Bowel sounds normal. NEUROLOGIC: She was grossly intact. LABORATORY DATA: On arrival showed a white cell count of 7700, hemoglobin 13.6, hematocrit 31, MCV 95, and platelet count of 142,000 with a manual differential showed 87% polymorphs, 9% lymphocytes, and 3% monocytes. Her chemistry showed a serum sodium 142, potassium 3.7, chloride 108, bicarbonate 24, anion gap of 9, BUN 22, creatinine 1.1. Estimated GFR was 51 mL per minute. Her glucose 130. Lactic acid was 3.1 and calcium was 9.3. Her urinalysis showed the urine was yellow, clear with a pH of 6.5, specific gravity of 1.025, small amount of protein. The urine was negative for glucose, ketones, small amount of blood, negative for nitrite and moderate amount of leukocyte esterase, 3-5 rbc's, too numerous to count wbc's, and moderate amount of bacteria. CT scan of the abdomen and pelvis showed that the patient has moderate left hydroureteronephrosis and severe left perinephric stranding. There is air in the upper collecting system, cannot exclude superimposed pyelitis correlate to any recent instrumentation. There is hyperdense material in the ureteropelvic junction that may be due to tiny stones. Acute hemorrhage is a less likely consideration. There is a tiny distal left ureteral calculus and bilateral nonobstructing renal calculi. ASSESSMENT AND PLAN: The patient was diagnosed with acute left-sided pyelonephritis with left-sided hydroureteronephrosis. The patient has multiple other medical problems including a recurrent stone formation, requiring cystoscopy and stent deployment and retrieval; gout; migraine headache; gastroesophageal reflux disease; irritable bowel syndrome; hyperlipidemia. I reconciled all her medications. Continue with IVs. We will await the result of the culture and sensitivities. She might need to repeat her CT scan of the abdomen and pelvis, especially if she has any worsening symptoms and might be transferred to another facility for stone retrieval if there is no improvement in her symptoms. SIDNEY DR: Gus TID: [id number]
[2021-06-27] MEDS: ONDANSETRON PF 4 MG/2 ML VIAL. IVP PRN ×2 (17:35→21:27)
[2021-06-27 19:50] VITALS: BP 88/59
[2021-06-27] MEDS: FAMOTIDINE 20 MG TABLET PO SCH (20:58)
[2021-06-27] MEDS: LACTOBACILLUS RHAMNOSUS GG 1 CAPSULE. PO SCH (20:58)
[2021-06-27] MEDS: ACETAMINOPHEN 325 MG TABLET PO PRN (21:01)
[2021-06-27 23:38] VITALS: BP 83/52
[2021-06-28 03:12] VITALS: BP 95/61
[2021-06-28] MEDS: MORPHINE SULFATE 4 MG/ML DISP.SYRIN. IV PRN ×4 (03:18→23:25)
[2021-06-28] MEDS: ONDANSETRON PF 4 MG/2 ML VIAL. IVP PRN (03:18)
[2021-06-28] MEDS: IV RINGERS SOLUTION,LACTATED 1,000 ML IV SCH ×2 (05:41→14:45)
[2021-06-28 06:01] VITALS: BP 104/66
[2021-06-28 06:21] LABS: BASO % 0 % (0-3); EOS % 0 % (0-3); HEMATOCRIT 35.6 % (36.0-47.0); HEMOGLOBIN 11.6 g/dL (12.0-15.5); LYMPH # 0.8 x10^3/uL (1.0-4.8); LYMPH % 7 % (24-48); MEAN CORPUSCULAR HEMOGLOBIN 31 pg (25-35); MEAN CORPUSCULAR HGB CONC 33 g/dL (31-37); MEAN CORPUSCULAR VOLUME 95 fL (79-100); MONO # 0.6 x10^3/uL (0.0-1.1); MONO % 5 % (0-9); NEUT # 10.8 x10^3uL (1.8-7.7); NEUT % 88 % (31-73); PLATELET COUNT 111 x10^3/uL (140-400); RED BLOOD COUNT 3.74 x10^6/uL (3.50-5.40); RED CELL DISTRIBUTION WIDTH 14.7 % (11.5-14.5); WHITE BLOOD COUNT 12.3 x10^3/uL (4.0-11.0)
[2021-06-28 06:35] LABS: ALBUMIN 2.4 g/dL (3.4-5.0); ALBUMIN/GLOBULIN RATIO 0.8 (1.0-1.7); CALCIUM 8.7 mg/dL (8.5-10.1); CREATININE 1.3 mg/dL (0.6-1.0); GFR 42.5; POTASSIUM 3.2 mmol/L (3.5-5.1); TOTAL BILIRUBIN 0.6 mg/dL (0.2-1.0); TOTAL PROTEIN 5.3 g/dL (6.4-8.2)
[2021-06-28] MEDS: LACTOBACILLUS RHAMNOSUS GG 1 CAPSULE. PO SCH ×2 (07:52→20:28)
[2021-06-28] MEDS: TOPIRAMATE 100 MG TABLET. PO SCH ×2 (07:52→20:28)
[2021-06-28] MEDS: ALLOPURINOL 300 MG TABLET. PO SCH (07:52)
[2021-06-28] MEDS: PROPRANOLOL ER 60 MG CAP.SA.24H. PO SCH (07:56)
[2021-06-28] MEDS ORDERED: FLU VACC QUAD 21-22 (6MOS+) PF 0.5 ML SYRINGE. VAX IM ONE (09:00)
[2021-06-28 10:57] VITALS: BP 113/70
[2021-06-28] MEDS ORDERED: ONDANSETRON PF 4 MG/2 ML VIAL. IVP PRN (11:30)
[2021-06-28] MEDS: PANTOPRAZOLE 40 MG TABLET. PO SCH (11:51)
[2021-06-28] MEDS: POTASSIUM CHLORIDE 20 MEQ TABLET.ER. PO SCH (13:42)
--- NOTE | 2021-06-28 13:43 | PN ---
DATE: 06/28/2021 ATTENDING PHYSICIANS: Dr. Acosta and Dr. Guy. SUBJECTIVE: Left flank pain. OBJECTIVE FINDINGS: VITAL SIGNS: Blood pressure this morning is 114/66, pulse 90. She is afebrile. Oxygen saturation 97% on room air. HEENT: Head is without trauma. Pupils reactive. Sclerae nonicteric. Oropharynx clear. NECK: Supple, no bruits. LUNGS: Clear. CARDIOVASCULAR: Showed regular heart tones. ABDOMEN: Soft. There is minimal guarding in the left flank. No rebound tenderness. EXTREMITIES: Without edema. NEUROLOGIC: Focally intact. PERTINENT LABORATORY STUDIES: The microbiology lab report of the urine culture of only 40,000 colonies of E. coli. The hemoglobin is 11.2 g/dL, creatinine is adequate. ASSESSMENT: 1. A 56-year-old female with left pyelonephritis. 2. History of gastric bypass surgery. 3. Gastroesophageal reflux. PLAN: 1. Continue antibiotics. 2. Diet as tolerated. 3. Pain and nausea control. GRACIA/KIM DR: Yanet TID: [id number]
[2021-06-28 14:29] VITALS: BP 101/65
[2021-06-28] MEDS: ACETAMINOPHEN 325 MG TABLET PO PRN (14:46)
[2021-06-28 19:00] VITALS: BP 91/58
[2021-06-28] MEDS: FAMOTIDINE 20 MG TABLET PO SCH (20:28)
[2021-06-28 23:46] VITALS: BP 108/68
[2021-06-29] MEDS: IV RINGERS SOLUTION,LACTATED 1,000 ML IV SCH ×3 (04:05→20:45)
[2021-06-29 05:25] VITALS: BP 110/73
[2021-06-29] MEDS: LACTOBACILLUS RHAMNOSUS GG 1 CAPSULE. PO SCH ×2 (08:39→21:17)
[2021-06-29] MEDS: TOPIRAMATE 100 MG TABLET. PO SCH ×2 (08:40→21:17)
[2021-06-29] MEDS: PANTOPRAZOLE 40 MG TABLET. PO SCH (08:40)
[2021-06-29] MEDS: ALLOPURINOL 300 MG TABLET. PO SCH (08:40)
[2021-06-29] MEDS: PROPRANOLOL ER 60 MG CAP.SA.24H. PO SCH (08:41)
[2021-06-29] MEDS: POTASSIUM CHLORIDE 20 MEQ TABLET.ER. PO SCH (08:41)
[2021-06-29] MEDS: MORPHINE SULFATE 4 MG/ML DISP.SYRIN. IV PRN (08:54)
--- NOTE | 2021-06-29 09:36 | PN ---
DATE: 06/29/2021 ATTENDING PHYSICIAN: Dr. Acosta. SUBJECTIVE: Severe left flank pain. She has not been getting her pain meds and I explained to her that this is typical for her condition. OBJECTIVE FINDINGS: VITAL SIGNS: Blood pressure this morning is 110/73, her pulse is 90 and regular, temperature is 99.8 degrees Fahrenheit and her oxygen saturation 98% on room air. HEENT: Head is without trauma. Pupils are reactive. Sclerae is nonicteric. The oropharynx is clear. NECK: Supple. LUNGS: Clear. CARDIOVASCULAR: Showed regular heart tones. ABDOMEN: Soft. There is tenderness on palpation over the left flank. EXTREMITIES: Without edema. NEUROLOGIC FUNCTION: Focally intact. LABORATORY DATA: Cultures of urine on admission grew 40,000 colonies of E. coli, but this is still significant and clinically relevant. ASSESSMENT: 1. A 56-year-old female with acute left pyelonephritis. 2. Renal ureteral calculi without any obstruction. 3. Nausea related to infection. PLAN: 1. Continue antibiotics as ordered. 2. Pain control. 3. Diet as tolerated. DORITA DR: Yanet TID: [id number]
[2021-06-29 11:00] VITALS: BP 142/62
[2021-06-29 15:15] VITALS: BP 108/70
--- NOTE | 2021-06-29 17:45 | NUR ---
Nursing note: Pt alert and oriented x 4, cooperative, and pleasant. Pt has poor food intakes; frequent healthy snacks offered. Urine output adequate, and urine color changed from red in AM to yellow in PM. Pain well controlled. No BM since 06/25; prune juice offered at dinner time. Will continue to monitor pt's condition.
[2021-06-29 19:54] VITALS: BP 119/77
[2021-06-29] MEDS ORDERED: MAGNESIUM CITRATE 296 ML SOLUTION. PO PRN (21:00)
[2021-06-29] MEDS: ACETAMINOPHEN 325 MG TABLET PO PRN (21:17)
[2021-06-29] MEDS: FAMOTIDINE 20 MG TABLET PO SCH (21:17)
[2021-06-29] MEDS: DOCUSATE SODIUM 100 MG CAPSULE PO SCH (21:17)
[2021-06-29 23:16] VITALS: BP 112/74
[2021-06-30] MEDS: IV RINGERS SOLUTION,LACTATED 1,000 ML IV SCH (02:06)
[2021-06-30 06:24] VITALS: BP 124/79
[2021-06-30] MEDS: LACTOBACILLUS RHAMNOSUS GG 1 CAPSULE. PO SCH (08:35)
[2021-06-30] MEDS: TOPIRAMATE 100 MG TABLET. PO SCH (08:35)
[2021-06-30] MEDS: PANTOPRAZOLE 40 MG TABLET. PO SCH (08:35)
[2021-06-30] MEDS: POTASSIUM CHLORIDE 20 MEQ TABLET.ER. PO SCH (08:35)
[2021-06-30] MEDS: DOCUSATE SODIUM 100 MG CAPSULE PO SCH (08:35)
[2021-06-30] MEDS: ALLOPURINOL 300 MG TABLET. PO SCH (08:35)
[2021-06-30 08:36] VITALS: BP 124/79
[2021-06-30] MEDS: PROPRANOLOL ER 60 MG CAP.SA.24H. PO SCH (08:36)
--- NOTE | 2021-06-30 10:12 | DS ---
DATE OF DISCHARGE: 06/30/2021 ATTENDING PHYSICIAN: Dr. Demetri Acosta. FINAL DISCHARGE DIAGNOSES: 1. Acute left-sided pyelonephritis, improved. 2. History of uric acid calculi without any obstruction. 3. Significant abdominal pain, resolved. HISTORY AND PHYSICAL: The patient is a pleasant 56-year-old female, who is still very active. She was admitted with abdominal pain, flank tenderness, fevers and evidence of pyelonephritis. PHYSICAL EXAMINATION: Please see the dictated note. PERTINENT LABORATORY AND X-RAY STUDIES: Admission hemoglobin was 13.6 g/dL, white count was 7700. Chemistry panel showed a creatinine of 1.1 mg/dL, potassium 3.2 mEq, this is replaced and followed up. Her AST and ALT were slightly elevated. Bilirubin was 0.6, BUN was 19 mg/dL. Nonfasting blood sugar 90. IMAGING STUDIES: She had an abdominal CT and pelvic CT on admission, which showed evidence of moderate left hydronephrosis with left perinephric stranding consistent with pyelonephritis. Hyperdense material in the ureteropelvic junction may due to tiny stones without obstruction. Bilateral nonobstructing intrarenal calculi. COURSE IN HOSPITAL: The patient was admitted. She was given pain meds, IV hydration, and intravenous Rocephin. She did better. Symptoms subsided. She remained afebrile and her pain was resolved by the beginning of the 4th hospital day. On the morning of the 4th day, her vital signs were quite stable. Her flank tenderness resolved. She was ready for discharge. At this time, I recommended 7 more days of cephalexin. Cultures grew out only 40,000 colonies of E. coli; however, this is clinically relevant due to her symptoms. For pain, she is comfortable with taking odci-eym-tymiokd Tylenol 1300 mg p.o. q. 8h. Other home meds are unchanged. She will continue her daily dose of allopurinol 300 mg daily, Pepcid daily, propranolol, and Topamax. She will follow up with Dr. Toussaint hopefully in 1 week's time to recheck urinalysis. The patient was then discharged from our hospital in stable condition with explicit drug and followup care. Total discharge time spent 39 minutes. GRACIA/WALKER DR: GRACIA/rhonda TID: [id number] CC: THEA TOUSSAINT
--- NOTE | 2021-06-30 10:21 | NUR ---
Discharge note Pt discharged at 1017 via ambulation accompained by self. pt given written and verbal instructions with verbal statement of understanding received
== END 2021-06-30 10:26 | disposition home or self-care (01) | DRG 689 ==
LOC: ER 03:23 → 1 SOUTH 05:54
PROVIDERS: ADMIT Internal Medicine; ATTEND Internal Medicine
DX: N13.6 Pyonephrosis (principal); E43 Unspecified severe protein-calorie malnutrition; E87.2 Acidosis; M10.9 Gout, unspecified; M19.90 Unspecified osteoarthritis, unspecified site; E66.01 Morbid (severe) obesity due to excess calories; K21.9 Gastro-esophageal reflux disease without esophagitis; K58.9 Irritable bowel syndrome, unspecified; E78.5 Hyperlipidemia, unspecified; Z20.822 Contact with and (suspected) exposure to COVID-19; E11.9 Type 2 diabetes mellitus without complications; G43.909 Migraine, unspecified, not intractable, without status migrainosus; Z98.84 Bariatric surgery status; Z87.442 Personal history of urinary calculi; Z87.440 Personal history of urinary (tract) infections; Z82.49 Family history of ischemic heart disease and other diseases of the circulatory system; Z80.3 Family history of malignant neoplasm of breast; Z68.20 Body mass index [BMI] 20.0-20.9, adult
CPT/HCPCS: 36415; 74176; 80048; 80053; 81001; 83605; 85025; 87077; 87086; 87186; 90471; 90686; 96365; 96375; J0696; J2270; J2405; J7120; Q0162; U0003; 99285-25

== ENCOUNTER 2021-10-18 15:10 | Emergency (ER) | payer OTHER ==
[~2021-10-18] VITALS: Ht 157.5 cm; Wt 48.3 kg
[~2021-10-18 15:10] MED LIST changes: +ALLO300T PO; +FAMO-63 PO; +PANT40TA3 PO; +PROP120C48 PO; +TOPI100T42 PO
[2021-10-18] MEDS ORDERED: IV NORMAL SALINE 1,000ML 1,000 ML IV SCH (15:45)
[2021-10-18] MEDS ORDERED: IOHEXOL 300 MG/ML 75 ML VIAL. IV ONE (15:45)
[2021-10-18] MEDS ORDERED: ONDANSETRON PF 4 MG/2 ML VIAL. IVP ONE (15:45)
[2021-10-18 15:53] LABS: BASO % 1 % (0-3); EOS # 0.1 x10^3/uL (0.0-0.7); EOS % 2 % (0-3); HEMATOCRIT 37.3 % (36.0-47.0); HEMOGLOBIN 12.2 g/dL (12.0-15.5); LYMPH # 1.8 x10^3/uL (1.0-4.8); LYMPH % 32 % (24-48); MEAN CORPUSCULAR HEMOGLOBIN 31 pg (25-35); MEAN CORPUSCULAR HGB CONC 33 g/dL (31-37); MEAN CORPUSCULAR VOLUME 94 fL (79-100); MONO # 0.6 x10^3/uL (0.0-1.1); MONO % 11 % (0-9); NEUT # 3.1 x10^3uL (1.8-7.7); NEUT % 55 % (31-73); PLATELET COUNT 192 x10^3/uL (140-400); RED BLOOD COUNT 3.97 x10^6/uL (3.50-5.40); RED CELL DISTRIBUTION WIDTH 13.9 % (11.5-14.5); WHITE BLOOD COUNT 5.6 x10^3/uL (4.0-11.0)
--- NOTE | 2021-10-18 15:54 | PHYS DOC ---
Past History Past Medical History: Arthritis, Diabetes Additional Past Medical Histor: gout; kidney cyst; ovarian cyst (HERNANDEZ CHENEY APRN) Past Surgical History: Cholecystectomy, Gastric Bypass Additional Past Surgical Histo: Josefina n y, humeral head replacement, ORIF R leg (HERNANDEZ CHENEY APRN) Alcohol Use: None (HERNANDEZ CHENEY APRN) General Adult EDM: Chief Complaint: ABDOMINAL PAIN HPI: HPI: Patient is a 56-year-old female who presents to the emergency department today for abdominal pain. Patient reports on Saturday she started experiencing right flank pain that has now moved to her medial upper abdomen. She reports that the pain is worse after eating. She rates it 5 out of 10. She reports taking tramadol and her Protonix at home for her symptoms. Patient has a history of gout, GERD, hypertension, kidney stones, pyelitis. Patient reports nausea and a fever on Saturday 1-1.7 which has resolved. Patient denies any vomiting, diarrhea, hematuria, urinary symptoms, reflux. (HERNANDEZ CHENEY APRN) Review of Systems: Review of Systems: Constitutional: See HPI HENT: See HPI GI: See HPI : See HPI Musculoskeletal: See HPI (HERNANDEZ CHENEY APRN) Current Medications: Current Meds: Current Medications Medications (Trade) Dose Ordered Sig/Debbie Start Time Stop Time Status Last Admin Dose Admin Fentanyl Citrate (Fentanyl 2ml Vial) 50 mcg 1X ONCE 10/18/21 15:45 10/18/21 15:47 DC 10/18/21 15:45 50 MCG Iohexol (Omnipaque 300 Mg/ml) 75 ml 1X ONCE 10/18/21 15:45 10/18/21 15:49 DC Ondansetron HCl (Zofran) 4 mg 1X ONCE 10/18/21 15:45 10/18/21 15:47 DC 10/18/21 15:46 4 MG Sodium Chloride 1,000 ml @ 1,000 mls/hr Q1H 10/18/21 15:45 10/18/21 16:44 10/18/21 15:44 1,000 MLS/HR (HERNANDEZ CHENEY APRN) Allergies: Allergies: Allergies Coded Allergies Type Severity Reaction Last Updated Verified No Known Drug Allergies 10/18/21 No (HERNANDEZ CHENEY APRN) Physical Exam: PE: Constitutional: Well developed, well nourished, no acute distress, non-toxic appearance. [] HENT: Normocephalic, atraumatic, bilateral external ears normal, oropharynx moist, no oral exudates, nose normal. [] Eyes: PERRL, EOMI, conjunctiva normal, no discharge. [] Neck: Normal range of motion, no stridor Cardiovascular:Heart rate regular rhythm, no murmur [] Lungs & Thorax: Bilateral breath sounds clear to auscultation [] Abdomen: Bowel sounds normal, soft, umbilical/epigastric abdominal tenderness with palpation, no abdominal rigidity or guarding, no rebound tenderness, negative James sign, no masses, no pulsatile masses. [] Skin: Warm, dry, no erythema, no rash. [] Back: No tenderness, no CVA tenderness. [] Extremities: No tenderness, no cyanosis, no clubbing, ROM intact, no edema. [] Neurologic: Alert and oriented X 3, normal motor function, normal sensory function, no focal deficits noted. [] Psychologic: Affect normal, judgement normal, mood normal. [] (HERNANDEZ CHENEY APRN) Current Patient Data: Labs: Laboratory Tests Test 10/18/21 15:35 White Blood Count 5.6 x10^3/uL Red Blood Count 3.97 x10^6/uL Hemoglobin 12.2 g/dL Hematocrit 37.3 % Mean Corpuscular Volume 94 fL Mean Corpuscular Hemoglobin 31 pg Mean Corpuscular Hemoglobin Concent 33 g/dL Red Cell Distribution Width 13.9 % Platelet Count 192 x10^3/uL Neutrophils (%) (Auto) 55 % Lymphocytes (%) (Auto) 32 % Monocytes (%) (Auto) 11 % Eosinophils (%) (Auto) 2 % Basophils (%) (Auto) 1 % Neutrophils # (Auto) 3.1 x10^3uL Lymphocytes # (Auto) 1.8 x10^3/uL Monocytes # (Auto) 0.6 x10^3/uL Eosinophils # (Auto) 0.1 x10^3/uL Basophils # (Auto) 0.0 x10^3/uL Urine Collection Type Unknown Urine Color Yellow Urine Clarity Cloudy Urine pH 5.5 Urine Specific [place] 1.020 Urine Protein Neg Urine Glucose (UA) Neg mg/dL Urine Ketones (Stick) Neg mg/dL Urine Blood Neg Urine Nitrite Pos Urine Bilirubin Neg Urine Urobilinogen Dipstick 0.2 mg/dL Urine Leukocyte Esterase Large Urine RBC 1-2 /HPF Urine WBC >40 /HPF Urine Squamous Epithelial Cells Few /LPF Urine Bacteria Mod /HPF Sodium Level 142 mmol/L Potassium Level 4.2 mmol/L Chloride Level 105 mmol/L Carbon Dioxide Level 26 mmol/L Anion Gap 11 Blood Urea Nitrogen 29 mg/dL Creatinine 1.1 mg/dL Estimated GFR (Cockcroft-Gault) 51.6 BUN/Creatinine Ratio 26 Glucose Level 70 mg/dL Calcium Level 9.6 mg/dL Total Bilirubin 0.2 mg/dL Aspartate Amino Transf (AST/SGOT) 46 U/L Alanine Aminotransferase (ALT/SGPT) 104 U/L Alkaline Phosphatase 115 U/L Total Protein 7.2 g/dL Albumin 3.1 g/dL Albumin/Globulin Ratio 0.8 Lipase 94 U/L Current Medications Medications (Trade) Dose Ordered Sig/Debbie Route PRN Reason Start Time Stop Time Status Last Admin Dose Admin Sodium Chloride 1,000 ml @ 1,000 mls/hr Q1H IV 10/18/21 15:45 10/18/21 16:44 DC 10/18/21 15:44 Fentanyl Citrate (Fentanyl 2ml Vial) 50 mcg 1X ONCE IVP 10/18/21 15:45 10/18/21 15:47 DC 10/18/21 15:45 Ondansetron HCl (Zofran) 4 mg 1X ONCE IVP 10/18/21 15:45 10/18/21 15:47 DC 10/18/21 15:46 Iohexol (Omnipaque 300 Mg/ml) 75 ml 1X ONCE IV 10/18/21 15:45 10/18/21 15:49 DC 10/18/21 16:26 Vital Signs: Vital Signs Date Time Temp Pulse Resp B/P (MAP) Pulse Ox O2 Delivery O2 Flow Rate FiO2 10/18/21 15:45 18 97 Room Air 10/18/21 15:18 98.1 75 110/71 (84) (HERNANDEZ CHENEY APRN) EKG: EKG: [] (HERNANDEZ CHENEY APRN) Radiology/Procedures: Radiology/Procedures: []PROCEDURE: CT ABD PELV W/ IV CONTRST ONLY CT ABDOMEN+PELVIS W History: Umbilical abdominal pain. Comparison: 06/27/2021 Technique: CT abdomen and pelvis with intravenous contrast. Findings: The lung bases are clear. No pleural or pericardial effusion. The liver is unremarkable. Status post cholecystectomy with mild intrahepatic biliary ductal dilatation. The pancreas and adrenal glands are unremarkable. Mildly enlarged spleen measures 12.5 cm AP. 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 Punctate right nephrolithiasis without hydronephrosis. No right perinephric fat stranding or hydroureter. There is a left ureteral pelvic junction stone measuring 1.1 x 1.7 cm with thickening and enhancement of the renal pelvic urothelium and a several foci of air in the renal calyces. Mild hydronephrosis and mild left perinephric stranding, improved from June comparison. Multiple small left nephroliths. Benign upper left upper pole renal cyst. The bladder is mostly decompressed without focal abnormality. Normal uterus and adnexa. 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 No abnormal dilation. The antecolic alimentary limb with left midabdomen jejunojejunostomy with expected appearance. No small bowel dilatation. The pancreaticobiliary limb is unremarkable. Mild colonic stool burden without abnormal dilation. The appendix is not discretely visualized, however there is no evidence of appendicitis. There is small pelvic free fluid. No intra-abdominal free air. No adenopathy. Mild aortic calcification without aneurysm. The soft tissues are unremarkable. Osseous structures are within normal limits. Impression: 1. Left ureterovesicular junction stone measuring 1.1 x 1.7 cm with thickened enhancing renal pelvic urothelium and air within the renal collecting system. 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 Overall left perinephric inflammation appears improved from comparison exam. Recommend urology consultation. 2. Additional bilateral nephrolithiasis. 3. Mild splenomegaly. 4. 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 5. Mild nonspecific free pelvic fluid. ------ Exposure: One or more of the following individualized dose reduction techniques were utilized for this examination: 1. Automated exposure control 2. Adjustment of the mA and/or kV according to patient size 3. Use of iterative reconstruction technique. Electronically signed by: Solomon Grimes MD (10/18/2021 5:00 PM) [id number] (HERNANDEZ CHENEY APRN) Heart Score: C/O Chest Pain: N/A Risk Factors: Risk Factors: DM, Current or recent (<one month) smoker, HTN, HLP, family history of CAD, obesity. Risk Scores: Score 0 - 3: 2.5% MACE over next 6 weeks - Discharge Home Score 4 - 6: 20.3% MACE over next 6 weeks - Admit for Clinical Observation Score 7 - 10: 72.7% MACE over next 6 weeks - Early Invasive Strategies (HERNANDEZ CHENEY APRN) Course & Med Decision Making: Course & Med Decision Making Pertinent Labs and Imaging studies reviewed. (See chart for details) Patient presents to the emergency department today for abdominal pain. Pain initially started on Saturday in the right flank area and now it is in her medial upper abdomen. Work-up in the ER consisted of blood work, urinalysis and CT imaging of abdomen and pelvis. Patient does have a significant history of kidney stones and pyelitis as well as GERD. She reports that the symptoms feel different than her typical GERD symptoms and she is not experience any reflux in her throat. Blood work was unremarkable, creatinine was 1.1 which is less than previous findings. Urinalysis shows urinary tract infection. CT scan of abdomen and pelvis shows a 1.1 x 1.7 cm stone in the left UVJ with inflammatory changes consistent with pyelitis and the radiologist recommended urology consultation. Patient will need IV antibiotics to treat her pyelitis. Patient will be transferred to [facility] for urology consultation and admission for IV antibiotics. I discussed patient's case with Dr. Pepper who agreed to admit the patient under his services, he recommended treatment with Zosyn and this was ordered. (HERNANDEZ CHENEY APRN) Course & Med Decision Making I was the Attending physician on the above date of service of this patient. This patient was evaluated, examined, and initially treated the emergency department by the EDITING CLERK/PA. I reviewed work-up and performed all aspects of MDM given reported patient condition(s), analysis of available data, and determination of risk of patient management decisions. I agreed to need for hospital transfer for urology consultation with immediate administration of Zosyn Electronically signed, Isabela Saucedo DO (ISABELA SAUCEDO DO) Kendrick Disclaimer: Kendrick Disclaimer: This electronic medical record was generated, in whole or in part, using a voice recognition dictation system. (HERNANDEZ CHENEY APRN) Departure Departure: Impression: Primary Impression: Pyelitis Disposition: 02 [facility] ([facility]) Admitting Physician: Other (dr pepper) (ISABELA SAUCEDO DO) Condition: GOOD Referrals: THEA DUMONT (PCP) HERNANDEZ CHENEY APRN Oct 18, 2021 15:54 ISABELA SAUCEDO DO Oct 19, 2021 06:18
[2021-10-18 16:03] LABS: CALCIUM 9.6 mg/dL (8.5-10.1); CREATININE 1.1 mg/dL (0.6-1.0); GFR 51.6; POTASSIUM 4.2 mmol/L (3.5-5.1)
[2021-10-18 16:08] LABS: ALBUMIN 3.1 g/dL (3.4-5.0); ALBUMIN/GLOBULIN RATIO 0.8 (1.0-1.7); BACTERIA,URINE MOD /HPF (0-FEW); CLARITY,URINE CLOUDY; COLOR,URINE YELLOW; GLUCOSE,URINE NEG (NEG); NITRITE,URINE POS (NEG); SQUAMOUS EPITHELIAL CELL,UR FEW /LPF; TOTAL BILIRUBIN 0.2 mg/dL (0.2-1.0); TOTAL PROTEIN 7.2 g/dL (6.4-8.2); UROBILINOGEN,URINE 0.2 mg/dL (0.2 mg/dL); WBC,URINE >40 /HPF (0-4)
--- NOTE | 2021-10-18 17:03 | RAD ---
CT ABDOMEN+PELVIS W History: Umbilical abdominal pain. Comparison: 06/27/2021 Technique: CT abdomen and pelvis with intravenous contrast. Findings: The lung bases are clear. No pleural or pericardial effusion. The liver is unremarkable. Status post cholecystectomy with mild intrahepatic biliary ductal dilatation. The pancreas and adrenal glands are unremarkable. Mildly enlarged spleen measures 12.5 cm AP. 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 Punctate right nephrolithiasis without hydronephrosis. No right perin ephric fat stranding or hydroureter. There is a left ureteral pelvic junction stone measuring 1.1 x 1.7 cm with thickening and enhancement of the renal pelvic urothelium and a several foci of air in the renal calyces. Mild hydronephrosis a nd mild left perinephric stranding, improved from June comparison. Multiple small left nephrolith s. Benign upper left upper pole renal cyst. The bladder is mostly decompressed without focal abnormality. Normal uterus and adnexa. 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 No abnormal dilation. The antecolic alimenta ry limb with left midabdomen jejunojejunostomy with expected appearance. No small bowel dilatation. T he pancreaticobiliary limb is unremarkable. Mild colonic stool burden without abnormal dilation. The appendix is not discretely visualized, however there is no evidence of appendicitis. There is small pelvic free fluid. No intra-abdominal free air. No adenopathy. Mild aortic calcificati on without aneurysm. The soft tissues are unremarkable. Osseous structures are within normal limits. Impression: 1. Left ureterovesicular junction stone measuring 1.1 x 1.7 cm with thickened enhancing renal pelvic urothelium and air within the renal collecting system. 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 Overall left perinephric inflammation appears improved from comparison exam. Recommend urology consultation. 2. Additional bilateral nephrolithiasis. 3. Mild splenomegaly. 4. 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 5. Mild nonspecific free pelvic fluid. ------ Exposure: One or more of the following individualized dose reduction techniques were utilized for thi s examination: 1. Automated exposure control 2. Adjustment of the mA and/or kV according to patient size 3. Use of iterative reconstruction technique. Electronically signed by: Solomon Grimes MD (10/18/2021 5:00 PM) [id number]
[2021-10-18] MEDS ORDERED: IV NORMAL SALINE 1,000ML 1,000 ML IV ONE (17:45)
[2021-10-18] MEDS ORDERED: PIP/TAZO PER PHARMACY MC PRN (17:45)
[2021-10-18] MEDS ORDERED: PIPERACILLIN/TAZOBACTAM 3.375 GM VIAL IV ONE (17:50)
[2021-10-18] MEDS ORDERED: IV NORMAL SALINE 50ML 50 ML ONE (17:50)
[2021-10-18] MEDS ORDERED: PIPERACILLIN/TAZOBACTAM 3.375 GM in IV NORMAL SALINE 50ML 50 ML IV ONE (18:00)
[2021-10-18 21:40] VITALS: BP 102/66
== END 2021-10-18 21:44 | disposition short-term general hospital (02) ==
LOC: ER 15:10
DX: N12 Tubulo-interstitial nephritis, not specified as acute or chronic (principal); M19.90 Unspecified osteoarthritis, unspecified site; E11.9 Type 2 diabetes mellitus without complications; Z20.822 Contact with and (suspected) exposure to COVID-19; Z90.49 Acquired absence of other specified parts of digestive tract; Z98.84 Bariatric surgery status
CPT/HCPCS: 36415; 74177; 80053; 81001; 83690; 85025; 87077; 87086; 87186; 87426; 96361; 96365; 96375; 96376; 99285; C9803; J2405; J2543; J3010; J7030; Q9967; U0003